=== PATIENT | male | born 1975 | race Hispanic/Latino ===

== ENCOUNTER 2023-07-28 09:45 | Day surgery (SDC) | payer OTHER ==
[2023-07-21 12:36] VITALS: BP 121/71; PULSE 79; RESP 18
[2023-07-21 12:41] LABS: BASOPHILS # (AUTO) 0.05 K/uL (0.00-0.20); BASOPHILS % (AUTO) 0.5 % (0.0-5.0); EOSINOPHILS % (AUTO) 3.1 % (0.0-8.0); HEMATOCRIT 36.9 % (42-54); IMMATURE GRANULOCYTE ABSOLUTE 0.03 K/uL (0-1); LYMPHOCYTES # (AUTO) 2.7 K/uL (1.0-4.8); LYMPHOCYTES % (AUTO) 27.6 % (21.0-51.0); MEAN CORPUSCULAR HEMOGLOBIN 27.5 pg (27.0-33.0); MEAN CORPUSCULAR HGB CONC 33.3 g/dL (32.0-36.0); MEAN CORPUSCULAR VOLUME 82.4 fL (79-99); MONOCYTES # (AUTO) 0.6 K/uL (0.1-1.0); MONOCYTES % (AUTO) 5.6 % (3.0-13.0); NEUTROPHILS # (AUTO) 6.1 K/uL (1.8-7.7); NEUTROPHILS % (AUTO) 62.9 % (40.0-77.0); PLATELET COUNT (AUTO) 246 K/uL (130-400); RED BLOOD CELL COUNT(AUTO) 4.48 MIL/uL (4.50-6.20); RED CELL DISTRIBUTION WIDTH 13.7 % (11.0-15.5); WHITE BLOOD COUNT (AUTO) 9.8 K/uL (4.8-10.8)
[2023-07-21 12:50] LABS: CREATININE 1.2 mg/dL (0.5-1.5); INR < 0.93 (0.85-1.15); POTASSIUM 4.1 mmol/L (3.5-5.1); PROTHROMBIN TIME 10.4 SEC (9.6-11.6)
[2023-07-21 12:51] LABS: PARTIAL THROMBOPLASTIN TIME 27.4 SEC (26.3-35.5)
[2023-07-28] VITALS (10 sets, daily range): BP systolic 111–142; BP diastolic 64–87; PULSE 69–78; RESP 12–18
[~2023-07-28] VITALS: Ht 172.7 cm; Wt 97.0 kg
[~2023-07-28 09:45] MED LIST: CYAN250010 PO; FLUD0.1T2 PO; FLUT1BLS11 IH; GABA-529 PO; GABA300C PO; HYDR-3421 PO; IBUP-2077 PO; INSLAN SQ; MECL-302 PO; MELO-108 PO; MIDO10TA PO; MONT-39 PO; ONDA4TAB10 PO; OZEMPIC SQ; PANT40TA54 PO; PIOG15TA66 PO; POLY15DR29 OP; PRAZ1CAP5 PO; QUET50TA24 PO
[2023-07-28] MEDS ORDERED: 0.9%NACL 1000ML 1,000 ML IV ONE (10:24)
[2023-07-28] MEDS ORDERED: LIDOCAINE HCL 400MG/20ML VIAL ONE (14:38)
[2023-07-28] MEDS ORDERED: HEPARIN 10,000 UNIT/10ML (1,000 UNIT/ML) VIAL ONE (14:39)
[2023-07-28] MEDS ORDERED: IOHEXOL 350 MG/ML 100ML INFUS..BTL IV ONE (14:39)
[2023-07-28] MEDS ORDERED: MIDAZOLAM HCL 1 MG/ML 2ML VIAL ONE (14:39)
[2023-07-28] MEDS ORDERED: FENTANYL CITRATE PF 50 MCG/1 ML 2ML VIAL ONE ×2 (14:39→15:51)
[2023-07-28] MEDS ORDERED: VERAPAMIL HCL 2.5 MG/ML VIAL ONE (14:39)
[2023-07-28] MEDS ORDERED: ATROPINE 1MG SYG IVP ONE (15:04)
[2023-07-28] MEDS ORDERED: DiphenhydrAMINE HCL 50 MG/ML VIAL ONE (15:07)
[2023-07-28] MEDS ORDERED: TICAGRELOR 90 MG TABLET ONE (15:45)
[2023-07-28] MEDS ORDERED: ASPIRIN 325MG EC TAB PO ONE (15:45)
[2023-07-28] MEDS ORDERED: MORPHINE 5 MG/ML VIAL (5MG OR GREATER DOSE) IVP SCH ×2 (16:30)
[2023-07-28] MEDS ORDERED: 0.9%NACL 1000ML 1,000 ML IV SCH (16:30)
[2023-07-28] MEDS ORDERED: ONDANSETRON 4MG INJ IVP PRN (16:30)
[2023-07-28] MEDS ORDERED: ONDANSETRON 4MG INJ IVP SCH (16:30)
[2023-07-28] MEDS ORDERED: NITROGLYCERIN 50MG/D5W 250ML 1 BOT IV PRN (16:30)
[2023-07-28] MEDS ORDERED: ACETAMINOPHEN WITH CODEINE 1 TAB TAB PO PRN ×2 (16:30)
[2023-07-28] MEDS ORDERED: TEMAZEPAM 30 MG CAP PO PRN (16:30)
[2023-07-28] MEDS ORDERED: TICAGRELOR 90 MG TABLET PO SCH (21:00)
[2023-07-29] MEDS ORDERED: ASPIRIN 81MG CHEW TAB PO SCH (09:00)
== END 2023-07-28 20:00 | disposition home or self-care (01) ==
LOC: DAH 09:45
PROVIDERS: ATTEND Student in an Organized Health Care Education/Training Program
DX: I25.119 Atherosclerotic heart disease of native coronary artery with unspecified angina pectoris (principal); I95.1 Orthostatic hypotension; G90.9 Disorder of the autonomic nervous system, unspecified; E11.22 Type 2 diabetes mellitus with diabetic chronic kidney disease; I12.9 Hypertensive chronic kidney disease with stage 1 through stage 4 chronic kidney disease, or unspecified chronic kidney disease; N18.9 Chronic kidney disease, unspecified; G47.33 Obstructive sleep apnea (adult) (pediatric); E11.43 Type 2 diabetes mellitus with diabetic autonomic (poly)neuropathy; K31.84 Gastroparesis; E78.5 Hyperlipidemia, unspecified; F41.9 Anxiety disorder, unspecified; F32.A Depression, unspecified; F43.10 Post-traumatic stress disorder, unspecified; Z90.49 Acquired absence of other specified parts of digestive tract; Z98.890 Other specified postprocedural states; Z98.49 Cataract extraction status, unspecified eye; Z83.3 Family history of diabetes mellitus; Z82.3 Family history of stroke; Z82.0 Family history of epilepsy and other diseases of the nervous system; Z87.891 Personal history of nicotine dependence; Z72.89 Other problems related to lifestyle; Z79.4 Long term (current) use of insulin
CPT/HCPCS: 80048; 85025; 85610; 85730; 36415; 71045; 93005; 93458; 93571; 85347 ×2; 82948; A4223 ×3; Q9965 ×2; C1769 ×2; C1725 ×2; C1874; C1894; A4649; C1887; J1200; J3010 ×2; J3490 ×2; J7030; J1644 ×3; Q9967; A4215; A4222; A4221; A4663; A4216; A4606; C9600; 99156; 99157; J0461; J2250

== ENCOUNTER 2023-08-16 20:47 | Observation (INO) | payer OTHER ==
[~2023-08-16] VITALS: Ht 172.7 cm; Wt 95.9 kg
[2023-08-16] MEDS ORDERED: ONDANSETRON 4MG INJ ONE (21:00)
[2023-08-16 21:03] LABS: BASOPHILS # (AUTO) 0.07 K/uL (0.00-0.20); BASOPHILS % (AUTO) 0.8 % (0.0-5.0); EOSINOPHILS # (AUTO) 0.62 K/uL (0.00-0.70); EOSINOPHILS % (AUTO) 7.3 % (0.0-8.0); HEMATOCRIT 33.5 % (42-54); IMMATURE GRANULOCYTE ABSOLUTE 0.03 K/uL (0-1); LYMPHOCYTES # (AUTO) 2.9 K/uL (1.0-4.8); LYMPHOCYTES % (AUTO) 34.8 % (21.0-51.0); MEAN CORPUSCULAR HEMOGLOBIN 27.8 pg (27.0-33.0); MEAN CORPUSCULAR HGB CONC 33.7 g/dL (32.0-36.0); MEAN CORPUSCULAR VOLUME 82.3 fL (79-99); MONOCYTES # (AUTO) 0.8 K/uL (0.1-1.0); MONOCYTES % (AUTO) 9.5 % (3.0-13.0); NEUTROPHILS % (AUTO) 47.2 % (40.0-77.0); PLATELET COUNT (AUTO) 226 K/uL (130-400); RED BLOOD CELL COUNT(AUTO) 4.07 MIL/uL (4.50-6.20); RED CELL DISTRIBUTION WIDTH 13.2 % (11.0-15.5); WHITE BLOOD COUNT (AUTO) 8.5 K/uL (4.8-10.8)
[2023-08-16 21:16] LABS: CREATININE 1.3 mg/dL (0.5-1.5); POTASSIUM 3.3 mmol/L (3.5-5.1)
[2023-08-16 21:17] LABS: INR < 0.93 (0.85-1.15); PROTHROMBIN TIME 10.3 SEC (9.6-11.6)
[2023-08-16 21:19] LABS: PARTIAL THROMBOPLASTIN TIME 23.1 SEC (26.3-35.5)
[2023-08-16 21:23] LABS: ALBUMIN 3.6 g/dL (3.5-5.0); BILIRUBIN,TOTAL 0.4 mg/dL (0.2-1.0); MAGNESIUM 1.9 mg/dL (1.80-2.40); TOTAL PROTEIN, SERUM 7.5 g/dL (6.0-8.3)
[2023-08-16 21:31] LABS: B-TYPE NATRIURETIC PEPTIDE 58 pg/mL (0-100)
[2023-08-17] VITALS (9 sets, daily range): BP systolic 97–167; BP diastolic 62–101; PULSE 77–85; RESP 14–18; O2SAT 98
[2023-08-17] MEDS ORDERED: ONDANSETRON 4MG INJ IV PRN
[2023-08-17] MEDS ORDERED: NITROGLYCERIN 0.4 MG SL TAB SL PRN
[2023-08-17] MEDS ORDERED: ACETAMINOPHEN 325 MG TAB PO PRN ×2
[2023-08-17] MEDS ORDERED: POTASSIUM CHLORIDE 10% ELIXIR 20 MEQ/15 ML UDCUP PO PRN (01:00)
[2023-08-17] MEDS ORDERED: DEXTROSE 50%-WATER 50 ML DISP.SYRIN IV PRN (01:00)
[2023-08-17] MEDS ORDERED: POTASSIUM CHLORIDE 20MEQ/100ML 100 ML IV PRN (01:00)
[2023-08-17] MEDS ORDERED: MAGNESIUM 2GM PREMIX 50ML 50 ML IV PRN (01:00)
[2023-08-17] MEDS ORDERED: GLUCAGON 1MG KIT 1 MG ML IM PRN (01:00)
[2023-08-17] MEDS: INSULIN HUMULIN R 100 UNIT/ML 3ML SQ SCH ×4 (07:30→21:53)
[2023-08-17 07:47] LABS: BASOPHILS # (AUTO) 0.05 K/uL (0.00-0.20); BASOPHILS % (AUTO) 0.6 % (0.0-5.0); EOSINOPHILS # (AUTO) 0.61 K/uL (0.00-0.70); EOSINOPHILS % (AUTO) 7.7 % (0.0-8.0); HEMATOCRIT 34.2 % (42-54); IMMATURE GRANULOCYTE ABSOLUTE 0.03 K/uL (0-1); LYMPHOCYTES # (AUTO) 2.1 K/uL (1.0-4.8); LYMPHOCYTES % (AUTO) 26.8 % (21.0-51.0); MEAN CORPUSCULAR HEMOGLOBIN 26.9 pg (27.0-33.0); MEAN CORPUSCULAR HGB CONC 33.3 g/dL (32.0-36.0); MEAN CORPUSCULAR VOLUME 80.7 fL (79-99); MONOCYTES # (AUTO) 0.6 K/uL (0.1-1.0); MONOCYTES % (AUTO) 7.7 % (3.0-13.0); NEUTROPHILS # (AUTO) 4.5 K/uL (1.8-7.7); NEUTROPHILS % (AUTO) 56.8 % (40.0-77.0); PLATELET COUNT (AUTO) 217 K/uL (130-400); RED BLOOD CELL COUNT(AUTO) 4.24 MIL/uL (4.50-6.20); RED CELL DISTRIBUTION WIDTH 13.2 % (11.0-15.5); WHITE BLOOD COUNT (AUTO) 7.9 K/uL (4.8-10.8)
[2023-08-17 08:00] LABS: HEMOGLOBIN A1C 7.2 % (4.0-6.0)
[2023-08-17 08:02] LABS: ALBUMIN 3.3 g/dL (3.5-5.0); BILIRUBIN,TOTAL 0.4 mg/dL (0.2-1.0); CREATININE 0.9 mg/dL (0.5-1.5); MAGNESIUM 1.9 mg/dL (1.80-2.40); POTASSIUM 3.7 mmol/L (3.5-5.1); TOTAL PROTEIN, SERUM 7.1 g/dL (6.0-8.3)
[2023-08-17] MEDS: FAMOTIDINE 20MG TAB PO SCH ×2 (09:01→21:47)
[2023-08-17] MEDS ORDERED: TICA90TA PO (12:52)
[2023-08-17] MEDS ORDERED: ASPI-1197 PO (12:52)
[2023-08-17] MEDS ORDERED: ATOR40TA69 PO (12:58)
[2023-08-17] MEDS: MIDODRINE HCL 5 MG TABLET PO SCH ×2 (13:16→21:47)
[2023-08-17] MEDS ORDERED: HYDROXYZINE 25 MG TABLET PO PRN (14:30)
[2023-08-17] MEDS ORDERED: MECLIZINE HCL 25 MG TABLET PO PRN (14:30)
[2023-08-17] MEDS ORDERED: ATORVASTATIN 40 MG TABLET PO SCH (21:00)
[2023-08-17] MEDS: TICAGRELOR 90 MG TABLET PO SCH (21:47)
[2023-08-17] MEDS: FLUDROCORTISONE ACETATE 0.1 MG TABLET PO SCH (21:47)
[2023-08-18] VITALS (7 sets, daily range): BP systolic 93–139; BP diastolic 54–88; PULSE 72–84; RESP 16–18; O2SAT 98
[2023-08-18 04:52] LABS: BASOPHILS # (AUTO) 0.05 K/uL (0.00-0.20); BASOPHILS % (AUTO) 0.6 % (0.0-5.0); EOSINOPHILS # (AUTO) 0.63 K/uL (0.00-0.70); EOSINOPHILS % (AUTO) 8.2 % (0.0-8.0); HEMATOCRIT 34.9 % (42-54); IMMATURE GRANULOCYTE ABSOLUTE 0.02 K/uL (0-1); LYMPHOCYTES # (AUTO) 2.6 K/uL (1.0-4.8); MEAN CORPUSCULAR HEMOGLOBIN 27.9 pg (27.0-33.0); MEAN CORPUSCULAR HGB CONC 34.7 g/dL (32.0-36.0); MEAN CORPUSCULAR VOLUME 80.6 fL (79-99); MONOCYTES # (AUTO) 0.7 K/uL (0.1-1.0); MONOCYTES % (AUTO) 8.5 % (3.0-13.0); NEUTROPHILS # (AUTO) 3.8 K/uL (1.8-7.7); NEUTROPHILS % (AUTO) 49.4 % (40.0-77.0); PLATELET COUNT (AUTO) 213 K/uL (130-400); RED BLOOD CELL COUNT(AUTO) 4.33 MIL/uL (4.50-6.20); WHITE BLOOD COUNT (AUTO) 7.7 K/uL (4.8-10.8)
[2023-08-18 04:58] LABS: MAGNESIUM 1.9 mg/dL (1.80-2.40); PHOSPHORUS 3.7 mg/dL (2.5-4.9); POTASSIUM 3.2 mmol/L (3.5-5.1)
[2023-08-18] MEDS: KCL 20 MEQ ERTAB PO PRN ×3 (05:08→10:27)
[2023-08-18] MEDS: INSULIN HUMULIN R 100 UNIT/ML 3ML SQ SCH (06:13)
[2023-08-18] MEDS: MIDODRINE HCL 5 MG TABLET PO SCH (08:43)
[2023-08-18] MEDS: TICAGRELOR 90 MG TABLET PO SCH (08:43)
[2023-08-18] MEDS: FLUDROCORTISONE ACETATE 0.1 MG TABLET PO SCH (08:43)
[2023-08-18] MEDS: FAMOTIDINE 20MG TAB PO SCH (08:43)
[2023-08-18] MEDS ORDERED: ASPIRIN 81MG CHEW TAB PO SCH (09:00)
== END 2023-08-18 10:30 | disposition home or self-care (01) ==
LOC: EDH 20:47 → EDHIP 23:58 → 2AH 08-17 17:25
PROVIDERS: ADMIT Hospitalist; ATTEND Hospitalist
DX: R07.89 Other chest pain (principal); F45.8 Other somatoform disorders; D64.9 Anemia, unspecified; E87.6 Hypokalemia; E66.9 Obesity, unspecified; I10 Essential (primary) hypertension; I25.10 Atherosclerotic heart disease of native coronary artery without angina pectoris; K21.9 Gastro-esophageal reflux disease without esophagitis; G47.33 Obstructive sleep apnea (adult) (pediatric); F41.9 Anxiety disorder, unspecified; F43.10 Post-traumatic stress disorder, unspecified; E11.43 Type 2 diabetes mellitus with diabetic autonomic (poly)neuropathy; E78.5 Hyperlipidemia, unspecified; F31.9 Bipolar disorder, unspecified; I49.3 Ventricular premature depolarization; I95.1 Orthostatic hypotension; Z87.820 Personal history of traumatic brain injury; Z95.5 Presence of coronary angioplasty implant and graft; Z79.82 Long term (current) use of aspirin; Z79.4 Long term (current) use of insulin; Z98.49 Cataract extraction status, unspecified eye; Z79.899 Other long term (current) drug therapy; Z98.890 Other specified postprocedural states; Z90.49 Acquired absence of other specified parts of digestive tract; Z68.32 Body mass index [BMI] 32.0-32.9, adult
CPT/HCPCS: 96375; 99285; 82550; 83735 ×3; 84484 ×4; 80053 ×2; 83880; 85025 ×3; 85610; 85730; 36415 ×3; 71045; 93005 ×2; 96372; 83036; 80061; 82948 ×5; 96365; 96366; 84100; 80048; J2405; G0378 ×34; J1815; J3475

== ENCOUNTER 2023-11-11 21:32 | Emergency (ER) | payer OTHER ==
[~2023-11-11] VITALS: Ht 172.7 cm; Wt 96.2 kg
[~2023-11-11 21:32] MED LIST changes: +ASPI-1197 PO; +ATOR40TA69 PO; -IBUP-2077 PO; +MECL-160 PO; -MECL-302 PO; -MELO-108 PO; +TICA90TA PO
[2023-11-11 22:08] LABS: BASOPHILS # (AUTO) 0.03 K/uL (0.00-0.20); BASOPHILS % (AUTO) 0.4 % (0.0-5.0); EOSINOPHILS # (AUTO) 0.39 K/uL (0.00-0.70); EOSINOPHILS % (AUTO) 5.5 % (0.0-8.0); HEMATOCRIT 32.7 % (42-54); IMMATURE GRANULOCYTE ABSOLUTE 0.02 K/uL (0-1); LYMPHOCYTES # (AUTO) 2.8 K/uL (1.0-4.8); LYMPHOCYTES % (AUTO) 39.7 % (21.0-51.0); MEAN CORPUSCULAR HEMOGLOBIN 26.8 pg (27.0-33.0); MEAN CORPUSCULAR HGB CONC 33.9 g/dL (32.0-36.0); MONOCYTES # (AUTO) 0.5 K/uL (0.1-1.0); MONOCYTES % (AUTO) 7.1 % (3.0-13.0); NEUTROPHILS # (AUTO) 3.3 K/uL (1.8-7.7); PLATELET COUNT (AUTO) 210 K/uL (130-400); RED BLOOD CELL COUNT(AUTO) 4.14 MIL/uL (4.50-6.20); RED CELL DISTRIBUTION WIDTH 13.5 % (11.0-15.5); WHITE BLOOD COUNT (AUTO) 7.1 K/uL (4.8-10.8)
[2023-11-11 22:17] LABS: CREATININE 1.3 mg/dL (0.5-1.5); POTASSIUM 3.6 mmol/L (3.5-5.1)
[2023-11-11 22:21] LABS: ALBUMIN 3.6 g/dL (3.5-5.0); BILIRUBIN,TOTAL 0.5 mg/dL (0.2-1.0); TOTAL PROTEIN, SERUM 7.5 g/dL (6.0-8.3)
[2023-11-11 22:26] LABS: B-TYPE NATRIURETIC PEPTIDE 24 pg/mL (0-100)
[2023-11-11 23:01] VITALS: BP 124/78; PULSE 76; RESP 17; O2SAT 96
== END 2023-11-11 23:07 | disposition home or self-care (01) ==
LOC: EDH 21:32
DX: R06.00 Dyspnea, unspecified (principal); F41.9 Anxiety disorder, unspecified; F31.9 Bipolar disorder, unspecified; I10 Essential (primary) hypertension; Z79.02 Long term (current) use of antithrombotics/antiplatelets; Z79.51 Long term (current) use of inhaled steroids; Z79.82 Long term (current) use of aspirin; Z79.84 Long term (current) use of oral hypoglycemic drugs; Z79.899 Other long term (current) drug therapy; Z88.1 Allergy status to other antibiotic agents; Z90.49 Acquired absence of other specified parts of digestive tract; Z95.5 Presence of coronary angioplasty implant and graft
CPT/HCPCS: 36415; 71045; 80053; 83880; 84484; 85025; 93005

== ENCOUNTER → 2024-01-08 | Outpatient (CLI) | payer OTHER ==
[~2024-01-08] MED LIST changes: +ALBUHFA IH; +CARI3CAP PO; +CETI10TA87 PO; -FLUT1BLS11 IH; +FLUT1BLS8 IH; -GABA-529 PO; +LITH300T3 PO; -MECL-160 PO; +OLOP5DRO26 OP; -OZEMPIC SQ; +PANT40GR PO; -PANT40TA54 PO; -POLY15DR29 OP; +POLY15DR38 OU; -QUET50TA24 PO; +SEMA1PEN3 SQ; +SUCR1TAB2 PO
== END | disposition home or self-care (01) ==
LOC: SHCH 09:53
PROVIDERS: ATTEND Student in an Organized Health Care Education/Training Program
DX: I73.9 Peripheral vascular disease, unspecified (principal); I70.90 Unspecified atherosclerosis
CPT/HCPCS: 93925

== ENCOUNTER 2024-03-27 09:35 | Emergency (ER) | payer OTHER ==
[~2024-03-27] VITALS: Ht 172.7 cm; Wt 95.3 kg
[~2024-03-27 09:35] MED LIST changes: +ONDA-243 PO; -ONDA4TAB10 PO
[2024-03-27] MEDS: 0.9%NACL 1000ML 1,000 ML IV ONE (10:11)
[2024-03-27] MEDS: ONDANSETRON 4MG INJ IVP ONE (10:11)
[2024-03-27 10:15] LABS: BASOPHILS # (AUTO) 0.09 K/uL (0.00-0.20); EOSINOPHILS # (AUTO) 0.41 K/uL (0.00-0.70); EOSINOPHILS % (AUTO) 4.7 % (0.0-8.0); HEMATOCRIT 35.7 % (42-54); IMMATURE GRANULOCYTE ABSOLUTE 0.03 K/uL (0-1); LYMPHOCYTES # (AUTO) 3.2 K/uL (1.0-4.8); LYMPHOCYTES % (AUTO) 36.1 % (21.0-51.0); MEAN CORPUSCULAR HEMOGLOBIN 27.8 pg (27.0-33.0); MEAN CORPUSCULAR HGB CONC 33.9 g/dL (32.0-36.0); MEAN CORPUSCULAR VOLUME 82.1 fL (79-99); MONOCYTES # (AUTO) 0.6 K/uL (0.1-1.0); MONOCYTES % (AUTO) 6.8 % (3.0-13.0); NEUTROPHILS # (AUTO) 4.5 K/uL (1.8-7.7); NEUTROPHILS % (AUTO) 51.1 % (40.0-77.0); PLATELET COUNT (AUTO) 228 K/uL (130-400); RED BLOOD CELL COUNT(AUTO) 4.35 MIL/uL (4.50-6.20); WHITE BLOOD COUNT (AUTO) 8.8 K/uL (4.8-10.8)
[2024-03-27 10:24] LABS: CREATININE 1.7 mg/dL (0.5-1.3); POTASSIUM 4.1 mmol/L (3.5-5.1)
[2024-03-27 10:26] LABS: INR 0.94 (0.85-1.15); PROTHROMBIN TIME 10.2 SEC (9.6-11.6)
[2024-03-27 10:27] LABS: PARTIAL THROMBOPLASTIN TIME 25.7 SEC (26.3-35.5)
[2024-03-27 11:24] VITALS: BP 160/92; PULSE 70; RESP 15; O2SAT 99
== END 2024-03-27 12:09 | disposition home or self-care (01) ==
LOC: EDH 09:35
DX: I95.9 Hypotension, unspecified (principal); F41.9 Anxiety disorder, unspecified; J45.909 Unspecified asthma, uncomplicated; F31.9 Bipolar disorder, unspecified; E11.9 Type 2 diabetes mellitus without complications; E78.00 Pure hypercholesterolemia, unspecified; K21.9 Gastro-esophageal reflux disease without esophagitis; Z88.1 Allergy status to other antibiotic agents; Z88.8 Allergy status to other drugs, medicaments and biological substances; Z79.899 Other long term (current) drug therapy; Z79.4 Long term (current) use of insulin; Z79.82 Long term (current) use of aspirin; Z79.84 Long term (current) use of oral hypoglycemic drugs; Z90.49 Acquired absence of other specified parts of digestive tract; Z98.890 Other specified postprocedural states; Z95.9 Presence of cardiac and vascular implant and graft, unspecified
CPT/HCPCS: 99285; 96374; 71045; 96361; 84484; 80048; 85025; 85610; 85730; 36415; 93005; J7030; J2405

== ENCOUNTER 2024-04-02 20:39 | Emergency (ER) | payer OTHER ==
[~2024-04-02] VITALS: Ht 172.7 cm; Wt 95.3 kg
[2024-04-02] MEDS: ONDANSETRON 4MG INJ IVP ONE (21:33)
[2024-04-02] MEDS: 0.9%NACL 1000ML 1,000 ML IV SCH (21:34)
[2024-04-02 21:35] LABS: BASOPHILS # (AUTO) 0.07 K/uL (0.00-0.20); BASOPHILS % (AUTO) 0.8 % (0.0-5.0); EOSINOPHILS # (AUTO) 0.41 K/uL (0.00-0.70); EOSINOPHILS % (AUTO) 4.7 % (0.0-8.0); HEMATOCRIT 34.6 % (42-54); IMMATURE GRANULOCYTE ABSOLUTE 0.02 K/uL (0-1); LYMPHOCYTES # (AUTO) 3.2 K/uL (1.0-4.8); LYMPHOCYTES % (AUTO) 36.7 % (21.0-51.0); MEAN CORPUSCULAR HEMOGLOBIN 27.3 pg (27.0-33.0); MEAN CORPUSCULAR HGB CONC 33.8 g/dL (32.0-36.0); MEAN CORPUSCULAR VOLUME 80.7 fL (79-99); MONOCYTES # (AUTO) 0.6 K/uL (0.1-1.0); MONOCYTES % (AUTO) 7.2 % (3.0-13.0); NEUTROPHILS # (AUTO) 4.5 K/uL (1.8-7.7); NEUTROPHILS % (AUTO) 50.4 % (40.0-77.0); PLATELET COUNT (AUTO) 219 K/uL (130-400); RED BLOOD CELL COUNT(AUTO) 4.29 MIL/uL (4.50-6.20); RED CELL DISTRIBUTION WIDTH 13.2 % (11.0-15.5); WHITE BLOOD COUNT (AUTO) 8.8 K/uL (4.8-10.8)
[2024-04-02 21:46] LABS: CREATININE 1.8 mg/dL (0.5-1.3); POTASSIUM 3.4 mmol/L (3.5-5.1)
[2024-04-02 21:56] LABS: ALBUMIN 3.9 g/dL (3.5-5.0); BILIRUBIN,TOTAL 0.4 mg/dL (0.2-1.0); TOTAL PROTEIN, SERUM 7.9 g/dL (6.0-8.3)
[2024-04-02 22:50] LABS: APPEARANCE,URINE CLOUDY (CLEAR); BILIRUBIN,URINE NEGATIVE (NEGATIVE); COLOR,URINE YELLOW (YELLOW); GLUCOSE, URINE (UA) 150 mg/dL (NEGATIVE); KETONES,URINE NEGATIVE (NEGATIVE); LEUKOCYTE ESTERASE ,URINE 500 Leu/uL (NEGATIVE); NITRATE,URINE NEGATIVE (NEGATIVE); OCCULT BLOOD,URINE NEGATIVE (NEGATIVE); PROTEIN,URINE 50 mg/dL (NEGATIVE); UROBILINOGEN,URINE 0.2 mg/dL (0.2-1.0)
[2024-04-02 22:53] LABS: ADD UA MICROSCOPIC YES
[2024-04-02 22:56] LABS: CALCIUM OXALATE CRYSTALS,UR RARE /LPF (None Seen); MUCUS,URINE RARE LPF (None Seen); SQUAMOUS EPITHELIAL CELL,UR FEW /HPF (0-2); WBC,URINE >100 /HPF (0-1)
[2024-04-02] MEDS ORDERED: SULF1TAB42 PO (23:02)
[2024-04-02 23:08] VITALS: BP 141/68; PULSE 71; RESP 18; O2SAT 100
== END 2024-04-02 23:13 | disposition home or self-care (01) ==
LOC: EDH 20:39
DX: F45.8 Other somatoform disorders (principal); N39.0 Urinary tract infection, site not specified; E86.0 Dehydration; I11.9 Hypertensive heart disease without heart failure; E11.9 Type 2 diabetes mellitus without complications; E78.00 Pure hypercholesterolemia, unspecified; J45.909 Unspecified asthma, uncomplicated; F41.9 Anxiety disorder, unspecified; F32.A Depression, unspecified; K21.9 Gastro-esophageal reflux disease without esophagitis; Z79.82 Long term (current) use of aspirin; Z79.84 Long term (current) use of oral hypoglycemic drugs; Z79.899 Other long term (current) drug therapy; Z90.49 Acquired absence of other specified parts of digestive tract; Z98.890 Other specified postprocedural states; Z88.8 Allergy status to other drugs, medicaments and biological substances
CPT/HCPCS: 99284; 96374; 84484; 80053; 85025; 87086; 81001; 36415; 93005; J7030; J2405

== ENCOUNTER 2024-04-13 01:02 | Emergency (ER) | payer OTHER ==
[~2024-04-13] VITALS: Ht 172.7 cm; Wt 95.3 kg
[~2024-04-13 01:02] MED LIST changes: +SULF1TAB42 PO
[2024-04-13 01:44] LABS: BASOPHILS # (AUTO) 0.05 K/uL (0.00-0.20); BASOPHILS % (AUTO) 0.6 % (0.0-5.0); EOSINOPHILS # (AUTO) 0.49 K/uL (0.00-0.70); EOSINOPHILS % (AUTO) 6.1 % (0.0-8.0); HEMATOCRIT 32.9 % (42-54); IMMATURE GRANULOCYTE ABSOLUTE 0.02 K/uL (0-1); LYMPHOCYTES # (AUTO) 2.7 K/uL (1.0-4.8); LYMPHOCYTES % (AUTO) 32.8 % (21.0-51.0); MEAN CORPUSCULAR HEMOGLOBIN 28.2 pg (27.0-33.0); MEAN CORPUSCULAR VOLUME 82.9 fL (79-99); MONOCYTES # (AUTO) 0.6 K/uL (0.1-1.0); MONOCYTES % (AUTO) 7.7 % (3.0-13.0); NEUTROPHILS # (AUTO) 4.3 K/uL (1.8-7.7); NEUTROPHILS % (AUTO) 52.6 % (40.0-77.0); PLATELET COUNT (AUTO) 196 K/uL (130-400); RED BLOOD CELL COUNT(AUTO) 3.97 MIL/uL (4.50-6.20); RED CELL DISTRIBUTION WIDTH 13.3 % (11.0-15.5); WHITE BLOOD COUNT (AUTO) 8.1 K/uL (4.8-10.8)
[2024-04-13 01:51] LABS: CREATININE 1.8 mg/dL (0.5-1.3); POTASSIUM 4.1 mmol/L (3.5-5.1)
[2024-04-13] MEDS: LACTATED RINGERS 1000ML 1,368 ML IV ONE (02:33)
[2024-04-13] MEDS: ONDANSETRON 4MG INJ IVP ONE (02:33)
[2024-04-13 02:40] VITALS: BP 125/67; PULSE 69; RESP 18; O2SAT 100
== END 2024-04-13 03:27 | disposition home or self-care (01) ==
LOC: EDH 01:02
DX: G90.9 Disorder of the autonomic nervous system, unspecified (principal); E11.43 Type 2 diabetes mellitus with diabetic autonomic (poly)neuropathy; J45.909 Unspecified asthma, uncomplicated; K21.9 Gastro-esophageal reflux disease without esophagitis; Z79.4 Long term (current) use of insulin; Z79.51 Long term (current) use of inhaled steroids; Z79.82 Long term (current) use of aspirin; Z79.84 Long term (current) use of oral hypoglycemic drugs; Z88.1 Allergy status to other antibiotic agents; Z88.8 Allergy status to other drugs, medicaments and biological substances; Z90.49 Acquired absence of other specified parts of digestive tract; Z95.5 Presence of coronary angioplasty implant and graft
CPT/HCPCS: 99283; 96374; 80048; 85025; 36415; J7120; J2405

== ENCOUNTER 2024-05-06 16:46 | Emergency (ER) | payer OTHER ==
[~2024-05-06] VITALS: Ht 172.7 cm; Wt 103.4 kg
[2024-05-06 17:19] LABS: BASOPHILS # (AUTO) 0.06 K/uL (0.00-0.20); BASOPHILS % (AUTO) 0.7 % (0.0-5.0); EOSINOPHILS # (AUTO) 0.37 K/uL (0.00-0.70); EOSINOPHILS % (AUTO) 4.5 % (0.0-8.0); HEMATOCRIT 31.7 % (42-54); IMMATURE GRANULOCYTE ABSOLUTE 0.02 K/uL (0-1); LYMPHOCYTES # (AUTO) 2.6 K/uL (1.0-4.8); LYMPHOCYTES % (AUTO) 32.2 % (21.0-51.0); MEAN CORPUSCULAR HEMOGLOBIN 27.9 pg (27.0-33.0); MEAN CORPUSCULAR HGB CONC 33.8 g/dL (32.0-36.0); MEAN CORPUSCULAR VOLUME 82.8 fL (79-99); MONOCYTES # (AUTO) 0.5 K/uL (0.1-1.0); MONOCYTES % (AUTO) 6.5 % (3.0-13.0); NEUTROPHILS # (AUTO) 4.6 K/uL (1.8-7.7); NEUTROPHILS % (AUTO) 55.9 % (40.0-77.0); PLATELET COUNT (AUTO) 216 K/uL (130-400); RED BLOOD CELL COUNT(AUTO) 3.83 MIL/uL (4.50-6.20); RED CELL DISTRIBUTION WIDTH 13.8 % (11.0-15.5); WHITE BLOOD COUNT (AUTO) 8.2 K/uL (4.8-10.8)
[2024-05-06 17:30] LABS: CREATININE 1.6 mg/dL (0.5-1.3)
[2024-05-06 17:53] LABS: B-TYPE NATRIURETIC PEPTIDE 58 pg/mL (0-100)
[2024-05-06 19:08] LABS: APPEARANCE,URINE CLEAR (CLEAR); BILIRUBIN,URINE NEGATIVE (NEGATIVE); COLOR,URINE LIGHT-YELLOW (YELLOW); GLUCOSE, URINE (UA) 500 mg/dL (NEGATIVE); KETONES,URINE NEGATIVE (NEGATIVE); LEUKOCYTE ESTERASE ,URINE 25 Leu/uL (NEGATIVE); NITRATE,URINE NEGATIVE (NEGATIVE); OCCULT BLOOD,URINE NEGATIVE (NEGATIVE); PROTEIN,URINE 10 mg/dL (NEGATIVE); UROBILINOGEN,URINE 0.2 mg/dL (0.2-1.0)
[2024-05-06 19:10] LABS: ADD UA MICROSCOPIC YES
[2024-05-06 19:16] LABS: MUCUS,URINE RARE LPF (None Seen); RBC,URINE 0-1 /HPF (0-1); SQUAMOUS EPITHELIAL CELL,UR RARE /HPF (0-2)
[2024-05-06 19:40] VITALS: BP 128/59; PULSE 56; RESP 20; O2SAT 99
== END 2024-05-06 20:00 | disposition home or self-care (01) ==
LOC: EDH 16:46
DX: I95.9 Hypotension, unspecified (principal); F45.8 Other somatoform disorders; E11.9 Type 2 diabetes mellitus without complications; K21.9 Gastro-esophageal reflux disease without esophagitis; F31.9 Bipolar disorder, unspecified; F41.9 Anxiety disorder, unspecified; Z79.02 Long term (current) use of antithrombotics/antiplatelets; Z79.4 Long term (current) use of insulin; Z79.82 Long term (current) use of aspirin; Z79.84 Long term (current) use of oral hypoglycemic drugs; Z88.1 Allergy status to other antibiotic agents; Z90.49 Acquired absence of other specified parts of digestive tract; Z95.1 Presence of aortocoronary bypass graft; Z98.890 Other specified postprocedural states
CPT/HCPCS: 36415; 71045; 80048; 81001; 82550; 83880; 84484; 85025; 93005

== ENCOUNTER 2024-10-24 21:24 | Emergency (ER) | payer OTHER ==
[~2024-10-24] VITALS: Ht 170.2 cm; Wt 105.2 kg
[~2024-10-24 21:24] MED LIST changes: -MIDO10TA PO; +MIDO10TA3 PO
--- NOTE | 2024-10-24 21:41 | ERN ---
General Chief Complaint: Chest Pain Stated Complaint: C/O CP, SOB, DIZZINESS Time Seen by MD: 21:27 History of Present Illness Initial Comments Patient comes in with complaint of midsternal chest pain starting tonight. Patient does have history of anxiety CAD bipolar PTSD as well as autonomic dysfunction. Patient states he had a sacral stimulator placed this morning around 7:00 a.m. at [facility]. It is currently on. This evening his walking around at [employer] and started having pain in his mid sternum. He is to get these frequently. In July of 2023 on a diagnostic catheterization patient found a 90% proximal LAD lesion and had a stent placed. Patient is currently only on aspirin. Since then he has had multiple episodes of chest pain and it was eventually concluded that it was not cardiac in origin. He states that sometimes on his autonomic dysfunction acts up he gets this presenta tion along with chest pain sometimes worsening anxiety as well. Tonight he started getting the same thing again several hours ago and presents for evaluation starting approximately at 7:00 p.m. Allergies: Coded Allergies: doxycycline (Unverified Allergy, Unknown, 07/15/23) ketamine (Unverified Allergy, Unknown, 07/15/23) midazolam (Unverified Allergy, Unknown, 07/15/23) prochlorperazine (Unverified Allergy, Unknown, 04/02/24) vancomycin (Unverified Allergy, Unknown, 07/15/23) Home Meds Active Scripts Sulfamethoxazole/Trimethoprim (Bactrim Ds Tablet) 800 Mg-160 Mg Tablet, 1 TAB PO BID for 7 Days, #14 TAB 0 Refills Prov:JESIKA VASQUEZ 04/02/24 Midodrine HCl (Midodrine HCl) 10 Mg Tablet, 10 MG PO TID, #60 TAB Prov:MANUELA ULLOA APRN 12/23/23 Reported Medications Albuterol Sulfate (Ventolin Hfa/Proventil Hfa/Proair Hfa) 90 Mcg Puff, 2 PUFF IH Q6HPRN, INHALER 12/22/23 Fluticasone Propion/Salmeterol (Wixela 100-50 Inhub) 100 Mcg-50 Mcg/Dose Blst.w.dev, 2 EACH IH DAILY 12/22/23 Polyvinyl Alcohol (Polyvinyl Alcohol) 1.4 % Drops, 1 DROP OU DAILY, DROP 12/22/23 Olopatadine HCl (Olopatadine HCl) 0.1 % Drops, 5 ML OP BID, DROP 12/22/23 Cariprazine Hydrochloride (Vraylar) 3 Mg Capsule, 3 MG PO DAILY, CAP 12/22/23 Gabapentin (Neurontin) 300 Mg Capsule, 300 MG PO HS, CAP 12/22/23 Cyanocobalamin (Vitamin B-12) (Vitamin B12) 2,500 Mcg Tablet, 2500 MCG PO DAILY, TAB 12/22/23 Waldron Carbonate (Waldron Carbonate) 300 Mg Tablet.er, 300 MG PO BID, TAB 12/22/23 Cetirizine HCl (Cetirizine HCl) 10 Mg Tab.chew, 10 MG PO Q6HPRN PRN for allergies , TAB.CHEW 12/22/23 Fludrocortisone Acetate (Fludrocortisone Acetate) 0.1 Mg Tablet, 0.1 MG PO DAILY, TAB 12/22/23 Sucralfate (Sucralfate) 1 Gram Tablet, 1 GM PO BIDAC, TAB 12/22/23 Pantoprazole Sodium (Pantoprazole Sodium) 40 Mg Granpkt.dr, 40 MG PO ACBKFST, PACK 12/22/23 Semaglutide (Ozempic) 1 Mg/0.75 Ml (4 Mg/3 Ml) Pen.injctr, 1 MG SQ weekly 12/22/23 Insulin Glargine,Hum.rec.anlog (Lantus) 100 Unit/Ml Inj, 20 UNITS SQ DAILY, ML 12/22/23 Atorvastatin Calcium (LIPITOR) 40 Mg Tablet, 40 MG PO HS, TAB 08/17/23 Ticagrelor (Brilinta) 90 Mg Tablet, 90 MG PO BID, TAB 08/17/23 Aspirin (Aspirin) 81 Mg Tab.chew, 81 MG PO DAILY, TAB.CHEW 08/17/23 Ondansetron (Ondansetron Odt) 4 Mg Tab.rapdis, 4 MG PO TID, TAB 07/16/23 Hydroxyzine HCl (Hydroxyzine HCl) 25 Mg Tablet, 25 MG PO BID PRN for ANXIETY/AGITATION, TAB 07/16/23 Montelukast Sodium (Montelukast Sodium) 10 Mg Tablet, 10 MG PO HS, TAB 07/16/23 Pioglitazone HCl (Pioglitazone HCl) 15 Mg Tablet, 15 MG PO DAILY, TAB 07/16/23 Prazosin HCl (Prazosin HCl) 1 Mg Capsule, 1 MG PO HSPRN PRN for INSOMNIA/SLEEP, CAP 07/16/23 Past Medical History Past Medical History: Anxiety, Bipolar, Diabetes-Type II, GERD, Heart Disease, Liver Disease Medical History Other: autonomic dysfuction Past Surgical History: Cholecystectomy, CABG Surgical History Other: cateracts, penial implant Social History Social History: Negative ROS Dictation Ten systems reviewed and negative except as noted in HPI Physical Exam Physical Exam Dictation GEN: non toxic, NAD HEENT: atrumatic, PERRL, EOMI, conjunctivae normal NECK: Soft supple nontender Heart RRR, no murmurs Chest: No deformity Lungs: Lungs clear to auscultation Ab: Soft nondistended nontender Back: No midline step-offs. No gross deformity. No CVA tenderness : m/s: Moving all four extremities. No gross deformity Neuro: CN 2-12 intact. Moving all four extremities. Psych: Cooperative Results Laboratory and Microbiology Lab and Micro Result Laboratory Tests Test 10/24/24 21:48 10/24/24 22:19 10/25/24 00:42 White Blood Count 9.2 K/uL (4.8-10.8) Red Blood Count 4.48 MIL/uL (4.50-6.20) L Hemoglobin 12.3 g/dL (14.0-18.0) L Hematocrit 35.8 % (42-54) L Mean Corpuscular Volume 79.9 fL (79-99) Mean Corpuscular Hemoglobin 27.5 pg (27.0-33.0) Mean Corpuscular Hemoglobin Concent 34.4 g/dL (32.0-36.0) Red Cell Distribution Width 13.7 % (11.0-15.5) Platelet Count 280 K/uL (130-400) Mean Platelet Volume 10.4 fL (7.5-10.5) Immature Granulocyte % (Auto) 0.3 % (0-1) Neutrophils (%) (Auto) 51.5 % (40.0-77.0) Lymphocytes (%) (Auto) 36.3 % (21.0-51.0) Monocytes (%) (Auto) 6.3 % (3.0-13.0) Eosinophils (%) (Auto) 4.9 % (0.0-8.0) Basophils (%) (Auto) 0.7 % (0.0-5.0) Neutrophils # (Auto) 4.7 K/uL (1.8-7.7) Lymphocytes # (Auto) 3.3 K/uL (1.0-4.8) Monocytes # (Auto) 0.6 K/uL (0.1-1.0) Eosinophils # (Auto) 0.45 K/uL (0.00-0.70) Basophils # (Auto) 0.06 K/uL (0.00-0.20) Absolute Immature Granulocyte (auto 0.03 K/uL (0-1) Nucleated Red Blood Cells 0.0 % (0.0-0.19) Sodium Level 137 mmol/L (136-145) Potassium Level 4.2 mmol/L (3.5-5.1) Chloride Level 105 mmol/L (101-111) Carbon Dioxide Level 27 mmol/L (21-32) Blood Urea Nitrogen 24 mg/dL (7-18) H Creatinine 1.6 mg/dL (0.5-1.3) H Glomerular Filtration Rate Calc 52 mL/min (>90) Random Glucose 137 mg/dL (70-105) H Total Calcium 8.3 mg/dL (8.5-10.1) L Total Creatine Kinase 232 U/L (21-232) # B-Type Natriuretic Peptide 23 pg/mL (0-100) Troponin I < 0.05 ng/mL (0.00-0.05) Troponin I High Sensitivity 8 ng/L (4-75) EKG/XRAY/US/CT/MRI EKG Comment Sinus rhythm 72 TN 159 QRS of 104 QTC of 421 left axis deviation QRS complexes are narrow good R-wave progression STT wave segments otherwise unremarkable interpretation abnormal X-RAY Comment CHEST 1VW REASON: CHEST PAIN COMPARISON: 05/06/2024 FINDINGS: Single view of the chest was obtained. Lungs are clear. Heart size is normal. There is no pulmonary vascular congestion. Mediastinum and bony thorax appear unremarkable. IMPRESSION: 1. Normal single view chest x-ray. DICTATED BY: PRECIOUS SARMIENTO MD DATE: 10/24/242158 ELECTRONICALLY SIGNED BY: PRECIOUS SARMIENTO MD DATE: 10/24/242201 [facility] Multiple differentials considered. We will get labs EKG chest x-ray here. Evaluation here unremarkable. Cardiac enzymes negative x2. Discharged home. Follow up with primary care physician and Cardiology ED Course Orders Procedure Category Date Status Time Bedside Troponin-I LAB.ER 10/24/24 In Process (Poc) 21:28 Vital Signs Per CPOE 10/24/24 Transmitted Routine 21:30 B-Type Natriuretic LAB 10/24/24 Complete Peptide 21:30 Chest 1vw RAD 10/24/24 Resulted 21:30 12 Lead Ekg Tracing- EKG 10/24/24 Complete Technical 21:30 Oxygen By Nc/Pulse Ox CPOE 10/24/24 Transmitted 21:30 Maintain Iv CPOE 10/24/24 Transmitted 21:30 Iv Insertion CPOE 10/24/24 Transmitted 21:30 Cardiac Monitoring CPOE 10/24/24 Transmitted 21:30 Pulse Oximetry With CPOE 10/24/24 Transmitted Vs And Prn 21:30 Cbc With Differential LAB 10/24/24 Complete 21:30 Activity: Br W/Brp CPOE 10/24/24 Transmitted With Assist 21:30 Creatine Kinase, Total LAB 10/24/24 Complete 21:30 Urinalysis Profile LAB 10/24/24 In Process 21:30 Troponin Poc Order LAB 10/24/24 Complete Only 21:30 Basic Metabolic Panel LAB 10/24/24 Complete 21:30 Troponin I High LAB 10/25/24 Complete Sensitivity 00:30 Vital Signs Date Time Temp Pulse Resp B/P (MAP) Pulse Ox O2 Delivery O2 Flow Rate FiO2 10/24/24 23:50 97.3 73 20 114/68 100 Room Air* 0 10/24/24 22:49 97.3 73 20 124/72 100 Room Air* 0 21 10/24/24 21:50 97.5 73 20 126/75 100 Room Air* 0 21 10/24/24 21:36 98.2 74 20 108/70 100 Room Air HEART Score Response (Comments) Value History: Low suspicion (0) 0 EKG: Normal 0 Age: 45-65yrs (+1) 1 Risk Factors: 3+ risk factors (+2) 2 Initial Troponin: Normal limit (0) 0 HEART Score Risk: Low Risk for MACE (1-3) Total 3 DX & DISP Disposition: Discharge Departure Impression: Primary Impression: Chest pain Condition: Stable Additional Instructions: Follow up with the primary care physician and movie operator Return for worsening symptoms or other concerns Referrals: JERARDO RODRIGUEZ MD (PCP) ANABEL OAKES MD Oct 24, 2024 21:41
--- NOTE | 2024-10-24 21:55 | EKG ---
[facility] Test Date: 2024-10-24 Test Time: 21:47:39 Pat Name: DEBBIE FOLEY Department: [facility] Room: Gender: M [employer] Operator: [id number] [phone] [id number] Requested By: ANABEL OAKES Order Number: [id number] Reading MD: Drake Veras Measurements Intervals [place] Rate: 72 P: 44 TN: 159 QRS: -19 QRSD: 104 T: 17 QT: 385 QTc: 421 Interpretive Statements Sinus rhythm Probable left ventricular hypertrophy Compared to ECG 05/06/2024 17:17:38 No significant changes Electronically Signed On 10-25-2024 06:58:32 PAINTER ORDNANCE by Drake Veras Please click the below link to view image of tracing.
--- NOTE | 2024-10-24 22:02 | HMCIMG ---
CHEST 1VW REASON: CHEST PAIN COMPARISON: 05/06/2024 FINDINGS: Single view of the chest was obtained. Lungs are clear. Heart size is normal. There is no pulmonary vascular congestion. Mediastinum and bony thorax appear unremarkable. IMPRESSION: 1. Normal single view chest x-ray.
[2024-10-24 22:08] LABS: CREATININE 1.6 mg/dL (0.5-1.3); POTASSIUM 4.2 mmol/L (3.5-5.1)
[2024-10-24 22:22] LABS: B-TYPE NATRIURETIC PEPTIDE 23 pg/mL (0-100)
[2024-10-24 22:25] LABS: BASOPHILS # (AUTO) 0.06 K/uL (0.00-0.20); BASOPHILS % (AUTO) 0.7 % (0.0-5.0); EOSINOPHILS # (AUTO) 0.45 K/uL (0.00-0.70); EOSINOPHILS % (AUTO) 4.9 % (0.0-8.0); HEMATOCRIT 35.8 % (42-54); IMMATURE GRANULOCYTE ABSOLUTE 0.03 K/uL (0-1); LYMPHOCYTES # (AUTO) 3.3 K/uL (1.0-4.8); LYMPHOCYTES % (AUTO) 36.3 % (21.0-51.0); MEAN CORPUSCULAR HEMOGLOBIN 27.5 pg (27.0-33.0); MEAN CORPUSCULAR HGB CONC 34.4 g/dL (32.0-36.0); MEAN CORPUSCULAR VOLUME 79.9 fL (79-99); MONOCYTES # (AUTO) 0.6 K/uL (0.1-1.0); MONOCYTES % (AUTO) 6.3 % (3.0-13.0); NEUTROPHILS # (AUTO) 4.7 K/uL (1.8-7.7); NEUTROPHILS % (AUTO) 51.5 % (40.0-77.0); PLATELET COUNT (AUTO) 280 K/uL (130-400); RED BLOOD CELL COUNT(AUTO) 4.48 MIL/uL (4.50-6.20); RED CELL DISTRIBUTION WIDTH 13.7 % (11.0-15.5); WHITE BLOOD COUNT (AUTO) 9.2 K/uL (4.8-10.8)
[2024-10-25 01:19] VITALS: BP 121/66; PULSE 74; RESP 20; TEMP 97.2; O2SAT 100
== END 2024-10-25 01:44 | disposition home or self-care (01) ==
LOC: EDH 21:24
DX: R07.89 Other chest pain (principal); F41.9 Anxiety disorder, unspecified; F31.9 Bipolar disorder, unspecified; K21.9 Gastro-esophageal reflux disease without esophagitis; I25.10 Atherosclerotic heart disease of native coronary artery without angina pectoris; E11.9 Type 2 diabetes mellitus without complications; Z79.02 Long term (current) use of antithrombotics/antiplatelets; Z79.4 Long term (current) use of insulin; Z79.51 Long term (current) use of inhaled steroids; Z79.82 Long term (current) use of aspirin; Z79.84 Long term (current) use of oral hypoglycemic drugs; Z79.85 Long-term (current) use of injectable non-insulin antidiabetic drugs; Z79.899 Other long term (current) drug therapy; Z88.1 Allergy status to other antibiotic agents; Z90.49 Acquired absence of other specified parts of digestive tract; Z95.1 Presence of aortocoronary bypass graft; Z95.5 Presence of coronary angioplasty implant and graft
CPT/HCPCS: 36415; 71045; 80048; 82550; 83880; 84484; 85025; 93005; 99285

== ENCOUNTER → 2025-02-28 | Outpatient (CLI) | payer OTHER ==
[2025-02-28 21:53] VITALS: PULSE 87; RESP 12
[2025-02-28 22:29] VITALS: PULSE 81; RESP 16
[2025-02-28 23:00] VITALS: PULSE 74; RESP 10
[2025-02-28 23:32] VITALS: PULSE 77; RESP 8
[2025-03-01] VITALS (11 sets, daily range): PULSE 71–79; RESP 8–10
== END | disposition home or self-care (01) ==
LOC: SLP 20:36
PROVIDERS: ATTEND Nurse Practitioner Family
DX: G47.33 Obstructive sleep apnea (adult) (pediatric) (principal); R06.83 Snoring; R53.83 Other fatigue; G47.00 Insomnia, unspecified; F41.8 Other specified anxiety disorders; N52.9 Male erectile dysfunction, unspecified; E66.9 Obesity, unspecified; E11.9 Type 2 diabetes mellitus without complications; R45.1 Restlessness and agitation; M54.9 Dorsalgia, unspecified; M25.50 Pain in unspecified joint; Z68.34 Body mass index [BMI] 34.0-34.9, adult
CPT/HCPCS: 95810

== ENCOUNTER → 2025-07-25 | Outpatient (CLI) | payer OTHER ==
[~2025-07-25] MED LIST changes: -ATOR40TA69 PO; +ATOR40TA71 PO; +BENZ-39 PO; -CYAN250010 PO; +EMPA25TA PO; +FLUT1BLS12 IH; -FLUT1BLS8 IH; +INSU100C6 SQ; +KETO-108 OU; -OLOP5DRO26 OP; +OLOP5DRO26 OU; -PIOG15TA66 PO; -PRAZ1CAP5 PO; -SULF1TAB42 PO; -TICA90TA PO
[2025-07-25 21:59] VITALS: PULSE 67; RESP 10
[2025-07-25 22:35] VITALS: PULSE 69; RESP 10
[2025-07-25 23:00] VITALS: PULSE 70; RESP 10
[2025-07-25 23:34] VITALS: PULSE 70; RESP 10
[2025-07-26] VITALS (19 sets, daily range): PULSE 65–74; RESP 9–19
== END | disposition home or self-care (01) ==
LOC: SLP 20:45
DX: G47.33 Obstructive sleep apnea (adult) (pediatric) (principal)
CPT/HCPCS: 95811

== ENCOUNTER → 2025-08-24 | Outpatient (CLI) | payer OTHER ==
--- NOTE | 2025-08-24 22:17 | HMCIMG ---
STUDY: X-RAY OF THE CHEST, 2 VIEWS HISTORY: Asthma. TECHNIQUE: PA and lateral views of the chest are submitted for interpretation. COMPARISON: CT chest with and without contrast for pulmonary embolism from 05/10/2025 and chest radiograph from 05/09/2025. FINDINGS: Pulmonary thomas: Lungs are well expanded with clear pulmonary thomas. No focal consolidation, pulmonary edema, or discrete pulmonary nodule is identified. Cardiac silhouette: Cardiac silhouette is within normal limits in size and contour. Mediastinum and ji: Mediastinal contours are normal without widening or mass. Hilar structures are unremarkable, and the retrosternal clear space is preserved. Osseous structures: Visualized ribs, clavicles, and thoracic spine show no acute fracture or destructive osseous lesion. Miscellaneous: No pleural effusion or pneumothorax is seen. Bilateral costophrenic angles are sharp. No free subdiaphragmatic air is identified. IMPRESSION: * No acute cardiopulmonary abnormality. * Radiographic appearance of the chest is stable compared with the chest radiograph from 05/09/[address] chest from 05/10/2025, with no interval development of consolidation, effusion, or other acute process. /[place]
== END ==
LOC: RAH 10:59
PROVIDERS: ATTEND Internal Medicine Pulmonary Disease
DX: J45.909 Unspecified asthma, uncomplicated (principal)
CPT/HCPCS: 71046